=== PATIENT | male | born 2000 | race Caucasian/White ===

== ENCOUNTER 2020-10-19 21:35 | Emergency (ER) | payer MEDICAID, SELFPAY ==
[2020-10-19 21:42] VITALS: BP 153/102; PULSE 110; RESP 18; TEMP 37; O2SAT 96; BMI 40.4
--- NOTE | 2020-10-19 22:01 | W.ED.FALL ---
HPI - Fall General: Chief Complaint: Fall Stated Complaint: fall, head lac Time Seen by Provider: 10/19/20 21:54 History of Present Illness: HPI Narrative: 20-year-old male patient slipped and fell in the shower striking the back of his head. Patient also has some abrasions to his chest wall posterior. And a scratch to his left upper arm. Patient denies any loss of consciousness. Patient reported some dizziness and blurring shortly after the fall and injury but states that he feels fine now. Patient appears well. Patient moves neck and head without difficulty. Review of Systems General: Reports: 10 or more systems reviewed and unremarkable except in HPI and below Skin/Breast: Reports: other (Scalp laceration) Physical Exam Const: COMMON NORMALS: no acute distress and patient oriented x3 GENERAL APPEARANCE: cooperative HENMT: COMMON NORMALS: TM's normal bilaterally and Normal external nose present HEAD & SCALP: other (3 cm laceration to occipital scalp) NOSE: Normal external nose present TYMPANIC MEMBRANE: TM's normal bilaterally MOUTH: Normal oral and palatal mucosa present THROAT: posterior oropharynx normal Eye: GENERAL EYE: appearance normal, both eyes and all related structures Neck/C-Spine: COMMON NORMALS: full ROM Chest: OTHER: Abrasions to left posterior chest, no pain is noted on palpation of the ribs or pressure of the rib cage. Resp: COMMON NORMALS: normal respiratory effort EFFORT & INSPECTION: Yes able to speak in complete sentences Cardio: COMMON NORMALS: regular rate and regular rhythm RATE: regular rate RHYTHM: regular rhythm GI: COMMON NORMALS: non-tender : COMMON NORMALS: Yes no CVA tenderness BLADDER/KIDNEY EXAM: Yes no CVA tenderness Back/Pelvis: COMMON NORMALS: no CVA tenderness and thoracic and lumbar spine normal to inspection Extremity: NARRATIVE EXTREMITY EXAM: 13 cm scratch to the left posterior arm. Neuro: COMMON NORMALS: patient oriented x3 and moves all extremities Psych: COMMON NORMALS: mental status grossly normal and cooperative Skin: COMMON NORMALS: no rashes or lesions noted GENERAL SKIN EXAM: no rashes or lesions noted Procedures Laceration Laceration 1: Site: scalp Size (cm): 3 Description: linear Depth: simple, single layer Local Anesthetic: lidocaine 1% and with epi Amount of anesthesia used (mL): 2 Pre-repair: wound explored and irrigated extensively Skin layer closed with: other ([place]) Number of sutures: 4 Course Vital Signs: Vital signs: Vital Signs Temperature 98.6 F 10/19/20 21:42 Pulse Rate 110 H 10/19/20 21:42 Respiratory Rate 18 10/19/20 21:42 Blood Pressure 153/102 10/19/20 21:42 Pulse Oximetry 96 10/19/20 21:42 MDM - Fall MDM Narrative: Medical decision making narrative: Patient comes in for evaluation of injury sustained during a fall in the shower. On exam patient has a 3 cm laceration to the occipital scalp. Patient also has some abrasions and scratches. No rib tenderness is noted on palpation. No focal neuro deficits are noted. Patient was all extremities well. Patient is able to eat and drink without difficulty. Vital signs are normal. Differential diagnosis includes but not limited to concussion, laceration, abrasions/contusions. There was noted. Patient appears well. No signs of significant injury were noted. Wound was closed with 4 brittnee. Patient tolerated well. Reviewed post procedure care and instructions with caregiver with recommendations for follow-up with primary care in 1 week. Discharge Plan Discharge Patient Disposition: Home Clinical Impression: Fall Qualifiers: Encounter type: initial encounter Qualified Code(s): W19.XXXA - Unspecified fall, initial encounter Laceration of occipital scalp Qualifiers: Encounter type: initial encounter Qualified Code(s): S01.01XA - Laceration without foreign body of scalp, initial encounter Condition: Stable Discharge Orders: Discharge ED (Routine); Ordered 10/19/20 Ordered By: Sina Coppola Referrals: Dain Tinajero MD [Primary Care Provider] - Discharge Diet: Usual diet Discharge Activity: Increase activity as tolerated Patient Instructions: Staple Care (ED), Opioid Safety Activity Restrictions/Additional Instructions: Home and rest. Try to keep the wound is clean and dry as possible. Brittnee need to come out in 5 to 7 days. Follow-up with primary care next week for recheck. Return to the ER for new concerns. 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
[2020-10-19] MEDS: tetanus-dipt-pertussis 0.5 mL SDV IM (22:52)
[2020-10-19 22:53] VITALS: PULSE 70; RESP 16; O2SAT 100
== END 2020-10-19 22:54 | disposition home or self-care (01) ==
PROVIDERS: Emergency Provider Nurse Practitioner Family; PCP Family Medicine
DX: S01.01XA Laceration without foreign body of scalp, initial encounter (principal); W18.2XXA Fall in (into) shower or empty bathtub, initial encounter; Z23 Encounter for immunization
CPT/HCPCS: 12002; 90471; 90715; 99282

== ENCOUNTER 2023-01-21 20:00 | Outpatient (CLI) | payer MEDICAID, SELFPAY | END 2023-01-21 20:01 | disposition home or self-care (01) | LOC: SLEEP 01-22 06:04 | PROVIDERS: PCP Family Medicine; Visit Provider Family Medicine | DX: G47.33 Obstructive sleep apnea (adult) (pediatric) (principal); G47.36 Sleep related hypoventilation in conditions classified elsewhere; G47.10 Hypersomnia, unspecified | CPT/HCPCS: 95810 ==

== ENCOUNTER 2023-09-05 22:21 | Emergency (ER) | payer MEDICAID, SELFPAY ==
[2023-09-05 22:36] VITALS: BP 134/81; PULSE 95; RESP 18; TEMP 36.6; O2SAT 96; BMI 40.6
--- NOTE | 2023-09-05 23:05 | ECG_ITS ---
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 Measurements Intervals [place] Rate: 77 P: 33 NE: 164 QRS: 40 QRSD: 104 T: -3 QT: 369 QTc: 418 Interpretive Statements SINUS RHYTHM Compared to ECG 11/12/2016 17:48:19 Sinus arrhythmia no longer present Electronically Signed On 09-06-2023 12:23:27 CDT by Juan F Campos M.D. [id number]
--- NOTE | 2023-09-05 23:05 | XRR_ITS ---
PROCEDURE INFORMATION: Exam: XR Chest Exam date and time: 09/05/2023 11:12 PM Age: 23 years old Clinical indication: Chest pressure; Patient HX: C/O chest pain TECHNIQUE: Imaging protocol: Radiologic exam of the chest. Views: 1 view. COMPARISON: No relevant prior studies available. FINDINGS: Lungs: Unremarkable. No consolidation. Pleural spaces: Unremarkable. No pleural effusion. No pneumothorax. Heart/Mediastinum: Unremarkable. No cardiomegaly. Bones/joints: Unremarkable. XR/XR chest 1V portable [id number] IMPRESSION: No acute findings.
--- NOTE | 2023-09-05 23:05 | ED_ITS ---
HPI - General Adult 2 General: Chief complaint: General Medical Stated complaint: high bp had chest pain lightheaded Time Seen by Provider: 09/05/23 22:26 Source: patient and other (care staff) Mode of arrival: ambulatory Limitations: no limitations History of Present Illness: Patient is a 23-year-old male who presents to the ED today along with two of his care staff for evaluation of elevated blood pressure readings and chest pain. Staff states they routinely check patient's blood pressure and it is normally 130s/80s. They state today patient asked them to check it and they were receiving varied blood pressures anywhere from 130s-190s/80s-120s all within minutes apart. Patient states he has had chest pains ever since I started my antibiotic . He was reportedly placed on Bactrim about 2 weeks ago for an infected sore to left inner thigh. He has since finished antibiotics and lesion is healed. Patient also complaints of bilateral leg pains and pain to the right side of his back. Onset (ago): day(s) Relieving factors: none Exacerbating factors: none Associated symptoms: Reports chest pain; Deny dyspnea, headache(s), malaise, nausea, rash, palpitations, syncope or vomiting Treatments prior to arrival: none Review of Systems 2 Const: Denies: fever(s), chills, body aches, fatigue or malaise Card: Reports: chest pain; Denies: palpitations, irregular heart rhythm, edema, swelling of feet/ankles, lightheadedness, syncope, pre-syncope, dyspnea on exertion, orthopnea, leg pain with exertion or acrocyanosis Resp: Denies: dyspnea GI: Denies: abdominal pain, nausea, vomiting or diarrhea : Denies: flank pain, dysuria or hematuria Musc: Reports: back pain and extremity pain; Denies: neck pain, extremity swelling, joint pain or joint swelling Skin/Breast: Denies: rash Neuro: Denies: headache(s), numbness in extremities, weakness in extremities, sensory changes or dizziness Physical Exam 2 Const: COMMON NORMALS: no acute distress, patient oriented x3, alert and well nourished GENERAL APPEARANCE: cooperative and other (intellectual disability) NUTRITIONAL APPEARANCE: obese ORIENTATION/CONSCIOUSNESS: Yes awake, Yes oriented to person, Yes oriented to place and Yes oriented to time HENMT: COMMON NORMALS: normocephalic and atraumatic HEAD & SCALP: n ormocephalic and atraumatic Neck/C-Spine: COMMON NORMALS: full ROM, no lymphadenopathy, supple and no meningeal signs Chest: COMMONS NORMALS: normal inspection of the chest Resp: COMMON NORMALS: normal respiratory effort and clear to auscultation bilaterally AUSCULTATION: clear to auscultation bilaterally Cardio: COMMON NORMALS: regular rate and regular rhythm RATE: regular rate RHYTHM: regular rhythm GI: COMMON NORMALS: Normal to inspection, nondistended, normoactive bowel sounds present, Soft to palpation, non-tender, No hepatosplenomegaly present and no masses PALPATION: Yes Soft to palpation and Yes No hepatosplenomegaly present : COMMON NORMALS: Yes no CVA tenderness BLADDER/KIDNEY EXAM: Yes no CVA tenderness Back/Pelvis: COMMON NORMALS: no CVA tenderness and thoracic and lumbar spine normal to inspection THORACIC SPINE/UPPER BACK: No thoracic spinal tenderness LUMBAR SPINE/LOWER BACK: No lumbar spinal tenderness BACK IMAGE (MALE): 1. reporting some discomfort here Extremity: COMMON NORMALS: normal to inspection, full ROM, capillary refill normal, no joint enlargement, no clubbing, cyanosis or edema, no calf tenderness and no pedal edema GENERAL: Yes normal exam except as noted OTHER: normal bilateral LE examination Neuro: ODALIS COMA SCALE: document GCS findings Odalis coma scale eye opening: Spontaneous [place] coma scale verbal response: Orientated [place] coma scale motor response: [place] commands Doalis coma scale total score: 15 COMMON NORMALS: patient oriented x3, moves all extremities, no focal motor deficits, no sensory deficits noted and gait normal SENSORIUM/ORIENTATION: Yes alert, Yes oriented to person, Yes oriented to place and Yes oriented to time MENINGEAL SIGNS: Yes no meningeal signs Skin: COMMON NORMALS: no rashes or lesions noted GENERAL SKIN EXAM: no rashes or lesions noted Course 2 Vital Signs: Vital signs: Vital Signs Temperature 97.8 F 09/05/23 22:36 Pulse Rate 95 09/05/23 22:36 Respiratory Rate 18 09/05/23 22:36 Blood Pressure 134/81 09/05/23 22:36 Pulse Oximetry 96 09/05/23 22:36 Oxygen Delivery Me thod Room Air 09/05/23 22:36 [facility] - General Adult Medical Decision Making Patient's blood pressure has been completely normal during his stay here. On re-examination, patient tells me he is not having any further chest pains. His CXR is unremarkable. EKG is nonischemic. His blood work including CBC, CMP, and baseline troponin are unremarkable. He will be allowed discharge with directions to follow-up with his primary care provider. Return ED precautions given. Medical Records I reviewed the patient's medical records. Lab Data I reviewed the patient's lab results. 09/05/23 23:45 09/05/23 23:45 Radiology Impressions Chest X-Ray 09/05/23 23:05 IMPRESSION: No acute findings. Laboratory Results WBC 6.58 10^3/uL (3.29-11.43) 09/05/23 23:45 RBC 4.31 10^6/uL (3.85-5.65) 09/05/23 23:45 Hgb 11.70 g/dL (11.27-16.99) 09/05/23 23:45 Hct 36.7 % (37-53) L 09/05/23 23:45 MCV 85.2 fl (82-101) 09/05/23 23:45 MCH 27.1 pg (27-33) 09/05/23 23:45 MCHC 31.9 g/dL (30-55) 09/05/23 23:45 RDW 13.2 % (12.1-15.1) 09/05/23 23:45 Plt Count 477 10^3/cmm (157-399) H 09/05/23 23:45 MPV 8.8 fL (7.4-10.4) 09/05/23 23:45 Neut % (Auto) 37.7 % 09/05/23 23:45 Lymph % (Auto) 54.4 % 09/05/23 23:45 [place] % (Auto) 6.2 % 09/05/23 23:45 Eos % (Auto) 0.9 % 09/05/23 23:45 Baso % (Auto) 0.2 % 09/05/23 23:45 Neut # (Auto) 2.48 10^3/uL (1.8-7.7) 09/05/23 23:45 Lymph # (Auto) 3.6 10^3/uL (0.8-4.8) 09/05/23 23:45 [place] # (Auto) 0.4 10^3/uL (0.2-0.9) 09/05/23 23:45 Eos # (Auto) 0.1 10^3/uL (0.0-0.8) 09/05/23 23:45 Baso # (Auto) 0.0 10^3/uL (0.0-0.1) 09/05/23 23:45 Nucleated RBC % (auto) 0 % 09/05/23 23:45 Nucleated RBCs # 0.0 /100WBC 09/05/23 23:45 Sodium 138 mmol/L (136-145) 09/05/23 23:45 Potassium 4.0 mmol/L (3.5-5.1) 09/05/23 23:45 Chloride 101 mmol/L (98-107) 09/05/23 23:45 Carbon Dioxide 27 mmol/L (22-29) 09/05/23 23:45 Anion Gap 14.0 (5-19) 09/05/23 23:45 BUN 10 mg/dL (6-20) 09/05/23 23:45 Creatinine 0.8 mg/dL (0.7-1.2) 09/05/23 23:45 GFR Calculation 119.8 mL/min (90-130) 09/05/23 23:45 Glucose 113 mg/dL (65-115) 09/05/23 23:45 Calculated Osmolality 286 mOsm/kg (285-295) 09/05/23 23:45 Calcium 9.8 mg/dL (8.5-10.5) 09/05/23 23:45 Total Bilirubin 0.2 mg/dL (0.15-1.2) 09/05/23 23:45 AST 56 U/L (0-40) H 09/05/23 23:45 ALT 102 U/L (0-41) H 09/05/23 23:45 Alkaline Phosphatase 72 U/L (40-130) 09/05/23 23:45 Troponin T Baseline < 6 ng/L (0-15) 09/05/23 23:45 Total Protein 7.5 g/dL (6.6-8.7) 09/05/23 23:45 Albumin 4.8 g/dL (3.5-5.2) 09/05/23 23:45 Globulin 2.7 g/dL (1.3-4.6) 09/05/23 23:45 All radiology interpretation(s) finalized by discharge Discharge Plan Discharge Patient Disposition: Home Clinical Impression: Elevated blood pressure reading, Non-cardiac chest pain Condition: Stable Discharge Orders: Discharge ED (Routine); Ordered 09/06/23 Ordered By: Bobbi Wood Referrals: Dain Tinajero MD [Primary Care Provider] - Activity Restrictions/Additional Instructions: As we discussed I recommend patient follow-up with his primary care provider. 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
[2023-09-05 23:13] VITALS: BP 142/95; PULSE 90; RESP 22; O2SAT 96
[2023-09-05 23:43] VITALS: BP 145/86; PULSE 84; RESP 13; O2SAT 97
[2023-09-05 23:50] LABS: Basophils % 0.2 %; Eosinophils # 0.1 10^3/uL (0.0-0.8); Eosinophils % 0.9 %; Hematocrit 36.7 % (37-53); Lymphocytes # 3.6 10^3/uL (0.8-4.8); Lymphocytes % 54.4 %; Mean Corpuscular HGB Conc 31.9 g/dL (30-55); Mean Corpuscular Hemoglobin 27.1 pg (27-33); Mean Corpuscular Volume 85.2 fl (82-101); Mean Platelet Volume 8.8 fL (7.4-10.4); Monocytes # 0.4 10^3/uL (0.2-0.9); Monocytes % 6.2 %; Neutrophils # 2.48 10^3/uL (1.8-7.7); Neutrophils % 37.7 %; Nucleated Red Blood Cells % 0 %; Platelet Count 477 10^3/cmm (157-399); Red Blood Count 4.31 10^6/uL (3.85-5.65); Red Cell Distribution Width 13.2 % (12.1-15.1); White Blood Count 6.58 10^3/uL (3.29-11.43)
[2023-09-06 00:08] LABS: Troponin(5th) Baseline < 6 ng/L (0-15)
[2023-09-06 00:13] VITALS: BP 119/86; PULSE 85; RESP 15; O2SAT 96
[2023-09-06 00:13] LABS: Alanine Aminotransferase 102 U/L (0-41); Albumin Level 4.8 g/dL (3.5-5.2); Alkaline Phosphatase 72 U/L (40-130); Aspartate Amino Transferase 56 U/L (0-40); Blood Urea Nitrogen 10 mg/dL (6-20); Calcium 9.8 mg/dL (8.5-10.5); Carbon Dioxide 27 mmol/L (22-29); Chloride 101 mmol/L (98-107); Creatinine Clr Calc Pharmacy 217.0098; Globulin 2.7 g/dL (1.3-4.6); Glomerular Filtration Rate 119.8 mL/min (90-130); Glucose 113 mg/dL (65-115); Osmolality Calculated 286 mOsm/kg (285-295); Sodium 138 mmol/L (136-145); Total Bilirubin 0.2 mg/dL (0.15-1.2); Total Protein 7.5 g/dL (6.6-8.7)
== END 2023-09-06 00:43 | disposition home or self-care (01) ==
PROVIDERS: Emergency Provider Physician Assistant; PCP Family Medicine
DX: R07.89 Other chest pain (principal); R03.0 Elevated blood-pressure reading, without diagnosis of hypertension
CPT/HCPCS: 36415; 71045; 80053; 84484; 85025; 93005; 99285

== ENCOUNTER 2025-01-17 11:00 | Outpatient (CLI) | payer MEDICAID, SELFPAY ==
--- NOTE | 2025-01-17 11:20 | US_ITS ---
WS: [id number] RIGHT UPPER QUADRANT ULTRASOUND HISTORY: ELEVATED LIVER ENZYMES COMPARISON: 12/29/2023 Liver: 15.8 cm in length. Normal size liver. Coarse echotexture with loss of the normal portal triads. No mass. Portal Vein: Normal hepatopetal flow with monophasic waveform. Gallbladder: Normally distended gallbladder with no stones or wall thickening. CBD: 0.4 cm Pancreas: Obscured. Right kidney: 12.9 cm in length. Normal size and echogenicity. No hydronephrosis or mass. Aorta and IVC: Unremarkable abdominal aorta and IVC. No ascites. US/US liver [id number] IMPRESSION: 1. Negative gallbladder. 2. Normal size liver with moderate hepatic steatosis. 3. Nonvisualization of the pancreas.
== END 2025-01-17 11:01 | disposition home or self-care (01) ==
PROVIDERS: PCP Family Medicine; Visit Provider Family Medicine
DX: R74.8 Abnormal levels of other serum enzymes (principal); K76.0 Fatty (change of) liver, not elsewhere classified
CPT/HCPCS: 76705